=== PATIENT | female | born 1965 ===

== ENCOUNTER 2017-01-02 10:58 | Emergency (ER) | payer OTHER ==
--- NOTE | 2017-01-02 14:25 | UC ---
Throat Pain/Nasal Bull HPI - HPI Summary HPI Summary: Laryngitis, nasal drainage for 1 week now has left ear pain - History of Current Complaint Chief Complaint: UCGeneralIllness Stated Complaint: EAR PAIN EYE ISSUE SORE THROAT Time Seen by Provider: 01/02/17 14:20 Hx Obtained From: Patient ?: No Onset/Duration: Gradual Onset, Still Present, Worse Since - this morning Severity: Moderate Associated Signs & Symptoms: Positive: Hoarseness, Sinus Discomfort, Nasal Discharge - Allergies/Home Medications Allergies/Adverse Reactions: Allergies Allergy/AdvReac Type Severity Reaction Status Date / Time No Known Allergies Allergy Verified 01/02/17 11:06 Home Medications: Home Medications Ibuprofen TAB* [Advil TAB*] 400 mg PO QID PRN 01/02/17 [History Confirmed ] Nortriptyline CAP* [Nortriptylline CAP*] 70 mg PO BEDTIME 01/02/17 [History Confirmed 01/02/17] PMH/Surg Hx/FS Hx/Imm Hx Previously Healthy: No Neurological History: Migraine - Surgical History Surgical History: None - Family History Known Family History: Positive: None Family History: no cardio vascular issues in family lineage - Social History Occupation: Employed Full-time Lives: With Family Alcohol Use: Weekly Substance Use Type: None Smoking Status (MU): Never Smoked Tobacco Review of Systems Constitutional: Negative Skin: Negative Eyes: Eye Redness ENT: Sore Throat, Ear Ache - left Respiratory: Cough Cardiovascular: Negative Gastrointestinal: Negative Genitourinary: Negative Motor: Negative Neurovascular: Negative Musculoskeletal: Negative Neurological: Negative Psychological: Negative All Other Systems Reviewed And Are Negative: Yes Physical Exam Triage Information Reviewed: Yes Appearance: Well-Appearing, No Pain Distress, Well-Nourished Vital Signs: Initial Vital Signs Temp 100.3 F 01/02/17 11:03 Pulse 116 01/02/17 11:03 Resp 16 01/02/17 11:03 BP 122/79 01/02/17 11:03 Pulse Ox 100 01/02/17 11:03 Vital Signs Reviewed: Yes Eye Exam: Normal Eyes: Positive: Conjunctiva Clear ENT Exam: Normal ENT: Positive: Normal ENT inspection, Hearing grossly normal, Pharynx normal, TM dull - left with fluid, TM red - left. Negative: Nasal congestion, Nasal drainage, Tonsillar swelling, Tonsillar exudate, Trismus, Muffled/hoarse voice Dental Exam: Normal Neck exam: Normal Neck: Positive: Supple, Nontender, No Lymphadenopathy Respiratory Exam: Normal Respiratory: Positive: Chest non-tender, Lungs clear, Normal breath sounds, No respiratory distress, No accessory muscle use Cardiovascular Exam: Normal Cardiovascular: Positive: RRR, No Murmur, Pulses Normal, Brisk Capillary Refill Musculoskeletal Exam: Normal Musculoskeletal: Positive: Strength Intact, ROM Intact, No Edema Neurological Exam: Normal Neurological: Positive: Alert, Muscle Tone Normal Psychological Exam: Normal Skin Exam: Normal Diagnostics - Laboratory Diagnostic Studies Completed/Ordered: RST (-) Throat Pain/Nasal Course/Dx - Course Assessment/Plan: amoxicillin, flonase, sudafed, increase fluids, ibuprofen follow with pcp - Differential Dx/Diagnosis Differential Diagnosis/HQI/PQRI: Laryngitis, Pharyngitis, Sinusitis, Tonsillitis , URI Provider Diagnoses: left serrous otitis media Discharge - Discharge Plan Condition: Stable Disposition: HOME Prescriptions: Amoxicillin (*) [Amoxicillin 875 MG (*)] 875 mg PO BID #20 tab Fluticasone NASAL SPRAY 50MCG* [Flonase NASAL SPRAY 50MCG*] 2 spray BOTH NARES DAILY #1 btl Patient Education Materials: Otitis Media (ED), Allergic Rhinitis (ED), Pseudoephedrine (By mouth) Referrals: [facility] [Outside] - If Needed
== END 2017-01-02 14:34 | disposition home or self-care (01) ==
LOC: UCEAST 10:58
DX: H65.92 Unspecified nonsuppurative otitis media, left ear (principal); J34.89 Other specified disorders of nose and nasal sinuses
CPT/HCPCS: 87651; 99202; G0463